=== PATIENT | male | born 1960 | race African-American/Black ===

== ENCOUNTER 2017-08-26 02:32 | Emergency (ER) | payer SELFPAY ==
[~2017-08-26] VITALS: Ht 170.2 cm; Wt 72.7 kg
[2017-08-26 04:13] VITALS: BP 142/80
[2017-08-26] MEDS ORDERED: ACETAMINOPHEN/CODEINE 300-30 MG TABLET PO ONE (04:15)
[2017-08-26 10:27] LABS: INFLUENZA TYPE B NEGATIVE FOR TYPE B (NEGATIVE)
== END 2017-08-26 04:14 | disposition home or self-care (01) ==
LOC: EMS 02:33
DX: J11.1 Influenza due to unidentified influenza virus with other respiratory manifestations (principal); J20.9 Acute bronchitis, unspecified; Z88.8 Allergy status to other drugs, medicaments and biological substances
CPT/HCPCS: 87804; 99284